=== PATIENT | female | born 1965 | race Caucasian/White ===

== ENCOUNTER 2018-06-11 14:25 | Emergency (ER) | payer OTHER, SELFPAY ==
[2018-06-11] VITALS (8 sets, daily range): BP systolic 114–146; BP diastolic 67–78; PULSE 74; RESP 16; TEMP 36.5; O2SAT 93–98
--- NOTE | 2018-06-11 14:30 | DI.CT_ITS ---
SYMPTOMS/DIAGNOSIS: SEVERE HEADACHES, ? ANEURYSM CT BRAIN: Noncontrast examination. No priors for comparison. The ventricular system is normal in appearance. There is no evidence of an intracranial mass lesion. There is no evidence of a subdural or epidural hematoma. No focal areas of decreased attenuation are seen. IMPRESSION: Normal noncontrast cranial CT. CTA OF THE BRAIN: Routine examination was performed. The distal internal carotid arteries are unremarkable. No evidence of occlusion, aneurysm or significant stenosis. The anterior cerebral arteries are unremarkable without evidence of occlusion, aneurysm or significant stenosis. The middle cerebral arteries are unremarkable without evidence of occlusion, aneurysm or significant stenosis. The posterior cerebral arteries are unremarkable without evidence of occlusion, aneurysm or significant stenosis. The vertebral arteries and basilar artery are unremarkable without evidence of occlusion, or aneurysm or significant stenosis. IMPRESSION: Normal CTA of the brain. The findings were discussed with Dr. Woo of the Emergency Department on the date of the examination.
--- NOTE | 2018-06-11 14:33 | W.ED.GENAD ---
Discharge Plan Disposition Patient Disposition: HOME Condition: Good Discharge Details Chief Complaint: Headache Clinical Impression: Migraine ED Provider: Juan Jose Woo Discharge Instructions Instructions: Migraine Headache (ED) Additional Instructions: your lab work and cat scans did not show any concerning findings follow up with your primary care provider within a week if you have persistent vomit or fevers return to the emergency department Medical Decision Making 52 yo female with hx of migraines comes in with sharp general head pain since last . Denies any fevers and has no meningismus on exam. States she was seen in ED in [place] Sat and Sun for IV meds and headache hasn't completely gone away. Was at work today and having severe pain so came here. She states this feels similar to prior migraine but is more severe. She has no focal motor or sensation deficits and CN II-XII are intact. Given she feels this is the worst headache of her life will obtain CT head and cta to eval for sdh, sah, aneurysm and monitor . labs unremarkable and per Dr. Frank no acute findings on imaging. Pain only decreased to 7/10 after meds. AFter discussion pros and cons of paraspinous cervical nerve block and risks she agreed to have the procedure done. Using sterile technique I cleaned skin 3cm lateral bilaterall to c7 process and injected 1.5cm in each area of 0.5% bupivicaine. She had relief to 4/10 and feels well enough to go home. She will f/u with pcp and return precautions given Differential Diagnosis migraine, aneurysm, sah, [employer] compliance director infection Imaging Data Radiologic Study: Attestation: I personally reviewed and interpreted this imaging study as follows: Imaging: CT Scan Radiologist's impression: no acute findings on nonconctrast head CT Radiologic Study #2: Attestation: I personally reviewed and interpreted this imaging study as follows: Imaging: CT Scan Radiologist's impression: CTA brain no acute findings per Dr. Frank Lab Data Lab results reviewed: Yes I reviewed the patient's lab results. HPI General Mode of arrival: ambulatory. Date/Time Provider Initiated Documentation: 06/11/18 14:26. Limitations to Documentation: no limitations. Information obtained by: patient. History of Present Illness 52 year old F presents to the emergency department with the chief complaint of headache, described as severe, with intensity rated at 10. Quality is described as sharp, and is localized to the head. Patient reports no radiation. Patient started experiencing this day(s) (4) and it has been constant. No relieving factors improve symptom(s), No exacerbating factors reported . Patient notes nausea/vomiting. General Stated Complaint: Headache TATE: 3 Review of Systems Review of Systems All systems reviewed & are unremarkable except as noted in HPI and below Constitutional Denies chills, Denies fever(s) and Denies weakness Eyes Denies loss of vision ENT Denies change in voice Cardiovascular Denies chest pain and Denies dyspnea Respiratory Denies dyspnea Gastrointestinal Denies abdominal pain, Denies nausea and Denies vomiting Genitourinary Denies dysuria Musculoskeletal Denies joint swelling Integumentary/Breasts Denies rash Neurologic Denies loss of vision and Denies weakness Psychiatric Denies depression Endocrine Denies cold intolerance and Denies heat intolerance Allergic/Immunologic Denies urticaria [facility] Social History Smoking/Tobacco Use Status: Current every day Exam Const General: no acute distress Orientation: alert HENWI Head: normal to inspection Ears: external ears normal General nose exam: external nose normal Mouth: moist mucous membranes Eyes General: appearance normal, both eyes and all related structures Neck Neck: normal visual inspection Resp Effort & Inspection: normal respiratory effort and able to speak in complete sentences Cardio Rate: regular rate Skin General skin exam: no rashes or lesions noted Neuro General: alert and oriented x3 Extrem General: normal to inspection Psych Mental Status: mental status grossly normal Course Vital Signs Temperature 36.5 C 06/11/18 14:29 Pulse 74 06/11/18 14:29 Respiratory Rate 16 06/11/18 14:29 Blood Pressure 146/78 H 06/11/18 14:29 Pulse Oximetry 96 06/11/18 14:29 Temperature 36.5 C 06/11/18 14:29 Pulse 74 06/11/18 14:29 Respiratory Rate 16 06/11/18 14:29 Respiratory Effort Non-Labored 06/11/18 14:31 Blood Pressure 146/78 H 06/11/18 14:29 Blood Pressure Position Sitting 06/11/18 14:29 Pulse Oximetry 96 06/11/18 14:29 Pain Level 9 06/11/18 14:29 Procedures Nerve Block Nerve Block 1: Time out performed: Yes Local Anesthetic: Bupivicaine 0.5% Amount of anesthesia used (mL): 3 Nerve Blocks: other (cervical paraspinous at c7, bilateral ) Procedure Successful: Yes Patient Tolerated Procedure: well Complications: none
--- NOTE | 2018-06-11 14:36 | ED.GENADUL_ITS ---
Discharge Plan Disposition Patient Disposition: HOME Condition: Good Discharge Details Chief Complaint: Headache Clinical Impression: Migraine ED Provider: Juan Jose Woo Discharge Instructions Instructions: Migraine Headache (ED) Additional Instructions: your lab work and cat scans did not show any concerning findings follow up with your primary care provider within a week if you have persistent vomit or fevers return to the emergency department Medical Decision Making 52 yo female with hx of migraines comes in with sharp general head pain since last . Denies any fevers and has no meningismus on exam. States she was seen in ED in [place] Sat and Sun for IV meds and headache hasn't completely gone away. Was at work today and having severe pain so came here. She states this feels similar to prior migraine but is more severe. She has no focal motor or sensation deficits and CN II-XII are intact. Given she feels this is the worst headache of her life will obtain CT head and cta to eval for sdh, sah, aneurysm and monitor . labs unremarkable and per Dr. Frank no acute findings on imaging. Pain only decreased to 7/10 after meds. AFter discussion pros and cons of paraspinous cervical nerve block and risks she agreed to have the procedure done. Using sterile technique I cleaned skin 3cm lateral bilaterall to c7 process and injected 1.5cm in each area of 0.5% bupivicaine. She had relief to 4/10 and feels well enough to go home. She will f/u with pcp and return precautions given Differential Diagnosis migraine, aneurysm, sah, real estate agency principal infection Imaging Data Radiologic Study: Attestation: I personally reviewed and interpreted this imaging study as follows: Imaging: CT Scan Radiologist's impression: no acute findings on nonconctrast head CT Radiologic Study #2: Attestation: I personally reviewed and interpreted this imaging study as follows: Imaging: CT Scan Radiologist's impression: CTA brain no acute findings per Dr. Frank Lab Data Lab results reviewed: Yes I reviewed the patient's lab results. HPI General Mode of arrival: ambulatory . Date/Time Provider Initiated Documentation: 06/11/18 14:26 . Limitations to Documentation: no limitations . Information obtained by: patient . History of Present Illness 52 year old F presents to the emergency department with the chief complaint of headache, described as severe, with intensity rated at 10. Quality is described as sharp, and is localized to the head. Patient reports no radiation. Patient started experiencing this day(s) (4) and it has been constant. No relieving factors improve symptom(s), No exacerbating factors reported . Patient notes nausea/vomiting. General Stated Complaint: Headache TATE: 3 Review of Systems Review of Systems All systems reviewed & are unremarkable except as noted in HPI and below Constitutional Denies chills, Denies fever(s) and Denies weakness Eyes Denies loss of vision ENT Denies change in voice Cardiovascular Denies chest pain and Denies dyspnea Respiratory Denies dyspnea Gastrointestinal Denies abdominal pain, Denies nausea and Denies vomiting Genitourinary Denies dysuria Musculoskeletal Denies joint swelling Integumentary/Breasts Denies rash Neurologic Denies loss of vision and Denies weakness Psychiatric Denies depression Endocrine Denies cold intolerance and Denies heat intolerance Allergic/Immunologic Denies urticaria [facility] Social History Smoking/Tobacco Use Status: Current every day Exam Const General: no acute distress Orientation: alert HENCT Head: normal to inspection Ears: external ears normal General nose exam: external nose normal Mouth: moist mucous membranes Eyes General: appearance normal, both eyes and all related structures Neck Neck: normal visual inspection Resp Effort & Inspection: normal respiratory effort and able to speak in complete sentences Cardio Rate: regular rate Skin General skin exam: no rashes or lesions noted Neuro General: alert and oriented x3 Extrem General: normal to inspection Psych Mental Status: mental status grossly normal Course Vital Signs Temperature 36.5 C 06/11/18 14:29 Pulse 74 06/11/18 14:29 Respiratory Rate 16 06/11/18 14:29 Blood Pressure 146/78 H 06/11/18 14:29 Pulse Oximetry 96 06/11/18 14:29 Temperature 36.5 C 06/11/18 14:29 Pulse 74 06/11/18 14:29 Respiratory Rate 16 06/11/18 14:29 Respiratory Effort Non-Labored 06/11/18 14:31 Blood Pressure 146/78 H 06/11/18 14:29 Blood Pressure Position Sitting 06/11/18 14:29 Pulse Oximetry 96 06/11/18 14:29 Pain Level 9 06/11/18 14:29 Procedures Nerve Block Nerve Block 1: Time out performed: Yes Local Anesthetic: Bupivicaine 0.5% Amount of anesthesia used (mL): 3 Nerve Blocks: other (cervical paraspinous at c7, bilateral ) Procedure Successful: Yes Patient Tolerated Procedure: well Complications: none
[2018-06-11] MEDS: Ketorolac 15 MG/ML VIAL IVP (14:47)
[2018-06-11] MEDS: Normal Saline 1,000 ML 1000 ML IV (14:47)
[2018-06-11] MEDS: Dexamethasone 10 MG/ML VIAL IVP (14:47)
[2018-06-11] MEDS: Prochlorperazine 10 MG/2 ML VIAL IVP (14:48)
[2018-06-11 15:00] LABS: Abs Immature Grans 0.02 k/cumm (0.0-0.09); Absolute Basophil Count 0.04 k/cumm (0.0-0.2); Absolute Eosinophil Count 0.33 k/cumm (0.0-0.7); Absolute Lymphocyte Count 3.16 k/cumm (1.2-3.4); Absolute Monocyte Count 0.86 k/cumm (0.11-0.7); Absolute Neutrophil Count 5.84 k/cumm (1.2-6.7); Basophils % 0.4; Eosinophils % 3.2; HCT 45.6 % (36.0-46.0); Immature Grans % 0.2; Lymphocytes % 30.8; Mean Corp. HGB Concentration 35.1 g/dL (32.0-36.0); Mean Corpuscular Hemoglobin 34.6 pg (27.0-33.0); Mean Corpuscular Volume 98.5 fL (80-95); Mean Platelet Volume 9.9 fL (8.0-11.0); Monocytes % 8.4; Platelet Count 271 x1000/uL (130-400); RBC 4.63 m/cumm (4.00-5.20); RBC Distribution Width 12.6 % (11.7-14.6); White Blood Cell Count 10.25 k/cumm (4.4-10.8)
[2018-06-11 15:14] LABS: ALT 20 U/L (12-78); AST 16 U/L (15-37); Albumin 3.8 g/dL (3.4-5.0); Alkaline Phosphatase 47 U/L (46-116); Anion Gap 9.2 mmol/L (3-11); BUN 23 mg/dL (7-18); Bilirubin, Total 0.2 mg/dL (0.2-1.0); CO2 26.8 mmol/L (21.0-32.0); CREATININE 0.87 mg/dL (0.55-1.02); Calcium 9.1 mg/dL (8.5-10.1); Chloride 103 mmol/L (98-107); Glucose 95 mg/dL (70-100); Magnesium 2.2 mg/dL (1.8-2.4); Sodium 139 mmol/L (136-145); Total Protein 7.3 g/dL (6.4-8.2)
[2018-06-11] MEDS: Omnipaque 350 MG/ML 100 ML BTL IJ (15:20)
[2018-06-11 15:44] LABS: PTT Activated 20.4 sec (21.0-31.4); Prothrombin Time 9.3 sec (9.3-10.8)
== END 2018-06-11 16:19 | disposition home or self-care (01) ==
PROVIDERS: Emergency Provider Emergency Medicine
DX: G43.909 Migraine, unspecified, not intractable, without status migrainosus (principal)
CPT/HCPCS: 36415; 64405; 70496; 80053; 96361; 96374; 96375; 99285; 70450; 83735; 85025; 85610; 85730; 99284; J0780; J1100; J1885; J3490